=== PATIENT | male | born 1950 | race Caucasian/White ===

== ENCOUNTER 2019-03-22 17:13 | Emergency (ER) | payer MEDICARE, OTHER ==
[~2019-03-22] VITALS: Ht 170.2 cm; Wt 81.8 kg
[2019-03-22 17:24] VITALS: Ht 170.2 cm; Wt 81.8 kg
[2019-03-22] MEDS ORDERED: DILTIAZEM 25 MG INJ IV ONE (18:00)
[2019-03-22] MEDS ORDERED: MAGNESIUM SULFATE 1 GM/D5W 100 ML IVPB ONE (19:00)
[2019-03-22 20:38] VITALS: BP 105/65; PULSE 78; RESP 20
== END 2019-03-22 20:42 | disposition left against medical advice (07) ==
LOC: E/R 17:13
DX: I47.2 Ventricular tachycardia (principal); I48.91 Unspecified atrial fibrillation; I25.810 Atherosclerosis of coronary artery bypass graft(s) without angina pectoris
CPT/HCPCS: 71045; 80048; 83735; 84484; 85025; 93005; 96365; 96375; 99285; J3475